=== PATIENT | male | born 1970 | race Caucasian/White ===

== ENCOUNTER → 2018-06-03 | Outpatient (CLI) | payer OTHER ==
[~2018-06-03] MED LIST: ASCO-182 PO; ASPI81TA94 PO; CHOL10005 PO; OMEG-11 PO; ROSU5TAB3; SIMV-49 PO; VITA1CAP46 PO; [UNRECOGNIZED DRUG - CODE] PO
== END ==
LOC: LAB 07:18
PROVIDERS: ATTEND Family Medicine
DX: E78.2 Mixed hyperlipidemia (principal)
CPT/HCPCS: 36415; 82465; 83718; 84460; 84478

== ENCOUNTER 2018-06-13 00:38 | Day surgery (SDC) | payer OTHER ==
[~2018-06-13] VITALS: Ht 185.4 cm; Wt 83.9 kg
[2018-06-13 07:05] VITALS: BP 101/77
[2018-06-13] MEDS ORDERED: PROPOFOL EMUL(*) 10MG/ML 20 ML 60 ML ONE (07:17)
[2018-06-13] MEDS ORDERED: LIDOCAINE MPF 1% 5 ML VIAL ONE ×2 (07:17→07:18)
[2018-06-13] MEDS ORDERED: NORMOSOL R SOLN(*) 1000 ML BAG 1,000 ML IV PRN (07:25)
[2018-06-13] MEDS ORDERED: LIDOCAINE/SOD BICARB 8.4% SYR ID ONE (07:25)
[2018-06-13 08:48] VITALS: BP 86/46
--- NOTE | 2018-06-13 08:56 | Short(Outpt) Discharge Summary ---
Discharge Summary Reason for Hosp/Final Diag: (1) Family history of colon cancer in mother Hospital Course & Plan: Colonoscopy with polypectomy x1 completed without problems. Departure Discharge to: Home, Self Care Discharge Instructions Home Meds Reported Medications Aspirin (ASPIRIN) 81 Mg Tab.chew, 81 MG PO QDAY, TAB.CHEW 06/01/18 Simvastatin (SIMVASTATIN) 20 Mg Tablet, 5 MG PO HS, TAB 06/01/18 Timber-3 Fatty Acids/Fish Oil (FISH OIL 1,000 MG CAPSULE) Unknown Strength Capsule, PO DAILY, CAPSULE 05/02/18 Cholecalciferol (Vitamin D3) (VITAMIN D3) Unknown Strength Tablet, PO DAILY, TAB 05/02/18 Vitamin B Complex (VITAMIN B COMPLEX) 1 Each Capsule, 1 EACH PO DAILY, CAPSULE 05/02/18 Ascorbic Acid (VITAMIN C) Unknown Strength Tablet, PO DAILY, TAB 05/02/18 Diet: Regular Activity: As Tolerated Special Instructions: Your colonoscopy was completed without problems and your prep was excellent (Good Job!!). I removed a single small polyp from your colon and it was sent to pathology. My office will call you in the next week or two to let you know what the polyp is but, in any case, your next colonoscopy should be in 5 years due to your family history. CONCETTA MENG MD Jun 13, 2018 08:56
[2018-06-13 09:01] VITALS: BP 87/48
[2018-06-13 09:15] VITALS: BP 101/70
[2018-06-13 10:00] VITALS: BP 107/76
[2018-06-13 10:01] VITALS: BP 112/74
== END 2018-06-13 10:20 | disposition home or self-care (01) ==
LOC: OR 00:38
PROVIDERS: ATTEND Surgery
DX: Z12.11 Encounter for screening for malignant neoplasm of colon (principal); D12.3 Benign neoplasm of transverse colon; E78.5 Hyperlipidemia, unspecified; Z83.71 Family history of colonic polyps; F17.210 Nicotine dependence, cigarettes, uncomplicated
CPT/HCPCS: 00811; 45380; 88305; J2001; J2704